=== PATIENT | female | born 1945 | race Caucasian/White ===

== ENCOUNTER 2016-12-21 10:07 | Emergency (ER) | payer MEDICARE ==
[2016-12-21] MEDS ORDERED: Acetaminophen/HYDROcodone 325-5 MG Tab ONE ×3 (10:30→10:48)
[2016-12-21] MEDS ORDERED: Acetaminophen/HYDROcodone 325-5 MG Tab PO ONE (10:41)
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
--- NOTE | 2016-12-21 11:45 | CR ---
DATE OF SERVICE: 12/21/2016 CLINICAL DATA: Injured ankle. LEFT ANKLE There is moderate soft tissue swelling over the lateral malleolus. There is a nondisplaced oblique fracture through the distal fibular metaphysis. No other fractures. No dislocation. IMPRESSION: Fracture distal fibula. [id number] [facility]
--- NOTE | 2016-12-21 11:48 | CR ---
DATE OF SERVICE: 12/21/2016 CLINICAL DATA: Ankle injury. LEFT FOOT The distal fibular fracture is again seen. There is diffuse osteopenia. 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 There are mild osteoarthritic changes involving multiple other joints. No other fractures. IMPRESSION: Fracture distal fibula. [id number] [facility]
== END 2016-12-21 11:40 | disposition home or self-care (01) ==
LOC: LB.ED 10:07
DX: S82.65XA Nondisplaced fracture of lateral malleolus of left fibula, initial encounter for closed fracture (principal); Z88.0 Allergy status to penicillin; Z88.1 Allergy status to other antibiotic agents; Z79.899 Other long term (current) drug therapy; V87.8XXA Person injured in other specified noncollision transport accidents involving motor vehicle (traffic), initial encounter; Y92.410 Unspecified street and highway as the place of occurrence of the external cause
CPT/HCPCS: 73610; 73630; 99283; A9270